=== PATIENT | male | born 2000 | race Caucasian/White ===

== ENCOUNTER 2022-11-15 15:17 | Emergency (ER) | payer OTHER | END 2022-11-15 17:17 | disposition left against medical advice (07) | LOC: ED 15:17 | DX: Z53.21 Procedure and treatment not carried out due to patient leaving prior to being seen by health care provider (principal) ==

== ENCOUNTER 2022-11-25 23:25 | Emergency (ER) | payer OTHER ==
--- NOTE | 2022-11-25 23:33 | ERPHSYRPT ---
- History of Present Illness Time Seen by Provider: 11/25/22 23:33 Source: patient Exam Limitations: no limitations Physician History: This is a morbidly obese 22-year-old white male who was out fishing with his friend when he slipped and fell and hit his face on the ground he fell from a standing position. There was loss of consciousness and he fractured his right front upper tooth. Patient has had concussions in the past Occurred: just prior to arrival Reason for Fall: slipped, fell from standing pos Injuries/Pain Location: face (Fractured right upper middle tooth) Loss of Consciousness: brief (seconds) Quality: sharpness Severity of Pain-Max: mild Severity of Pain-Current: mild Associated Symptoms (Fall): denies symptoms Allergies/Adverse Reactions: azithromycin [From Zithromax] Allergy (Verified 11/26/22 00:09) Anaphylactic Reaction Travel Risk - International Travel Have you traveled outside of the country in past 3 weeks: No - Coronavirus Screening Are you exhibiting any of the following symptoms?: No Close contact with a COVID-19 positive Pt in past 14-21 Days: No - Review of Systems Constitutional: No Symptoms Eyes: No Symptoms Ears, Nose, & Throat: Other (Ruptured right upper middle tooth) Respiratory: No Symptoms Cardiac: No Symptoms Abdominal/Gastrointestinal: No Symptoms Genitourinary Symptoms: No Symptoms Musculoskeletal: No Symptoms Skin: No Symptoms Neurological: No Symptoms Psychological: No Symptoms Endocrine: No Symptoms Hematologic/Lymphatic: No Symptoms Immunological/Allergic: No Symptoms All Other Systems: Reviewed and Negative - Past Medical History Pertinent Past Medical History: Yes - Past Surgical History Past Surgical History: Yes - Nursing Vital Signs Nursing Vital Signs: Initial Vital Signs Temperature 98 F 11/26/22 00:10 Pulse Rate 95 H 11/26/22 00:10 Respiratory Rate 18 11/26/22 00:10 Blood Pressure 155/100 11/26/22 00:10 O2 Sat by Pulse Oximetry 97 11/26/22 00:10 Pain Scale Pain Intensity 10 - Avery Coma Score Best Eye Response ([place]): (4) open spontaneously Best Verbal Response ([place]): (5) oriented Best Motor Response ([place]): (6) obeys commands [place] Total: 15 - Physical Exam General Appearance: no apparent distress, alert, anxiety, obese Head Injury: No no evidence of injury Eye Exam: PERRL/EOMI, eyes nml inspection ENT Exam: airway nml, dental injury (Fractured tooth #8), No evidence of ENT injury Neck Exam: supple, trachea midline, full range of motion, normal alignment, normal inspection Respiratory/Chest Exam: No chest tenderness, No respiratory distress, No crepitus Gastrointestinal Exam: tenderness Back Exam: normal inspection, normal range of motion, No CVA tenderness, No vertebral tenderness Extremity Exam: normal inspection, normal range of motion, pelvis stable Neurologic Exam: alert, oriented x 3, cooperative, document control manager II-XII nml as tested, normal mood/affect, nml cerebellar function, nml station & gait, sensation nml Skin Exam: normal color, warm, dry SpO2 Interpretation: normal O2 Delivery: Room Air - Course Nursing assessment & vital signs reviewed: Yes Ordered Tests: Active Orders 24 hr Category Date Time Status FACIAL BONES WO CONTRAST [CT] Stat Exams 11/26/22 00:15 Completed HEAD WITHOUT CONTRAST [CT] Stat Exams 11/26/22 00:15 Completed Medication Summary Discontinued Medications Generic Name Dose Route Start Last Admin Trade Name Anny PRN Reason Stop Dose Admin Cephalexin HCl 500 mg 11/26/22 01:17 11/26/22 01:26 Cephalexin Mh500 Mg Capsule PO 11/26/22 01:18 500 mg STAT ONE Administration Cephalexin HCl Confirm 11/26/22 01:26 Cephalexin Mh500 Mg Capsule Administered 11/26/22 01:27 Dose 500 mg .ROUTE .STK-MED ONE Oxycodone/Acetaminophen 2 tab 11/26/22 01:31 Oxycodone Hcl/Apap 5 Mg/325 Mg Tablet PO 11/26/22 01:32 SENT HOME W/ PATIENT STA - Progress Progress: unchanged Progress Note: 11/26/22 02:06 Cat scan of the head without contrast shows no acute intracranial abnormality. This study was interpreted by the radiologist and I reviewed the impression. CAT scan of the facial bones without contrast shows no acute fracture or dislocation. There is evidence of sinusitis present. This patient's medical issue is 1 of low to moderate complexity. The level of complexity and the work-up ordered is based on review of the patient's past medical history, review of the medication list, review the patient drug allergy list, history of present illness and physical findings on examination. Work-up in this patient includes facial bone CAT scan without contrast and head CT without contrast. Patient was given a prescription for Keflex 500 mg 3 times a day for the next 7 days. We did give him a Percocet pain pill here in the emergency department and a Keflex 500 mg oral antibiotic here in the emergency department. Patient is to contact the dentist on 11/26/2022 for further evaluation management. Counseled pt/family regarding: diagnosis, need for follow-up, rad results Medical Desision Making - Independent Historian Additional History obtained from: Relative/friend - Diagnostic Testing Radiological Interpretation: Reviewed by me, Teleradiologist Report - Risk of complications Minimal Risk: Minimal risk of morbidity The pt has a mod risk of morbidity or mortality based on: Need for prescription drug management - Departure Departure Disposition: Home Clinical Impression: Dental trauma Condition: Stable Critical Care Time: No Referrals: KINSEY DUMAS PA [Primary Care Provider] - Follow up/PCP as directed Additional Instructions: Take your antibiotics as prescribed. Use Tylenol and ibuprofen for pain control. Follow-up with dentist later today, 11/26/2022, for further evaluation management. Purchase [id number] dental wax. Prescriptions: Cephalexin Mh 500 mg [Keflex 500 mg] 500 mg PO TID #21 cap
[2022-11-26] MEDS ORDERED: KEFLEX 500 MG PO ONE (01:17)
[2022-11-26] MEDS ORDERED: KEFLEX 500 MG ONE (01:26)
--- NOTE | 2022-11-26 01:27 | XRAY ---
CLINICAL HISTORY:Fall injury COMPARISON:None; TECHNIQUES:Axial non-contrast CT scan of the brain was performed from the skull base to the high parietal region. Coronal and sagittal reconstructions were also obtained; FINDINGS: The visualized brain parenchyma shows a normal appearance. Borjas-white matter differentiation is maintained. No midline shifts or deformity. No intracerebral or extra axial hematoma. Normal size and configuration of the cerebral ventricles. Normal CT appearance of the posterior fossa structures namely the cerebellar hemispheres, brainstem, and cerebellar peduncles. The IACs are unremarkable. The cerebellopontine angles are clear. The pituitary gland, the pineal gland, and the optic chiasm are unremarkable. The osseous structures in the skull base are unremarkable. No definite calvarium fractures. The scanned paranasal sinuses are clear. IMPRESSION: The non-enhanced CT study for the brain is unremarkable. Electronically Signed by: Molly Dooley MD. (11/26/2022 00:22:27 TELEVISION INSTALLER)
[2022-11-26] MEDS ORDERED: PERCOCET TABLET 5/325MG PO STA (01:31)
--- NOTE | 2022-11-26 01:57 | XRAY ---
CLINICAL HISTORY:Fall injury COMPARISON:None; TECHNIQUES:Non-contrast CT scan of the facial bones was performed, with sagittal and coronal reconstructions; FINDINGS: No definite fracture of maxillofacial bones. Minimal mucosal thickening is seen in bilateral maxillary and ethmoidal sinuses likely due to ongoing sinusitis. Nasal Septum: Midline. Turbinates: Thickening of the mucosa covering the left inferior turbinate. No evidence of markell bullosa or paradoxical curvature. Uncinate Processes: No deviation or bulla formation. O-M UNIT: Infundibula and hiatus semilunaris are widely patent. SINUSES: The frontal, sphenoid, maxillary sinuses, and ethmoid air cells are well pneumatized. Fovea Ethmoidalis: Normal position. Fovea ethmoidal and cribriform plates are not low lying. Nasopharynx: Unremarkable. Facial Bones: Unremarkable. IMPRESSION: No definite fracture of maxillofacial bones. Minimal mucosal thickening is seen in bilateral maxillary and ethmoidal sinuses likely due to ongoing sinusitis. Electronically Signed by: Molly Dooley MD. (11/26/2022 00:51:11 INFORMATION COORDINATOR)
[2022-11-26] MEDS ORDERED: PERCOCET TABLET 5/325MG ONE (02:08)
[2022-11-26 02:34] VITALS: BP 145/95; PULSE 94; O2SAT 99
== END 2022-11-26 02:35 | disposition home or self-care (01) ==
LOC: ED 23:25
DX: S02.5XXA Fracture of tooth (traumatic), initial encounter for closed fracture (principal); W18.30XA Fall on same level, unspecified, initial encounter
CPT/HCPCS: 70450; 70486; 99283; A9270-GY